=== PATIENT | male | born 1930 | race Caucasian/White ===

== ENCOUNTER → 2018-12-23 | Outpatient (CLI) | payer MEDICARE, OTHER ==
--- OUTSIDE RECORDS SUMMARY | 2019-02-10 13:43 | XMSREPORT | Summary of Care ---
:1930 Author Organization [facility] Address [address] [place] [address] Care Team Providers Name Role Phone Provider, No Attributed RESOURCE Attributed Provider Unavailable Reason for Visit Auth/Cert Status Reason Specialty Diagnoses / Procedures Referred By Contact Referred To Contact Diagnoses Nonrheumatic aortic (valve) stenosis Procedures (TAVR DESEAN) REPLACE AORTIC VALVE PERQ Encounter Details Date Type Department Care Team Description 11/30/2018 - Hospital Encounter [facility] Enmanuel Mcgrath MD [address] [place] [address] [phone] Severe aortic valve 12/01/2018 CENTER [facility]D [facility] Sanjeev Belle, DO [address] [place] [address] [phone] stenosis CARE F [address], [place] [id number] Allergies Active Allergy Reactions Severity Noted Date Comments Heparin Other (Specify in High 05/04/2012 HIT. Heparin paradoxically Comments) caused thrombosis. Warfarin Unknown/Not Verified 12/13/2012 documented as of this encounter (statuses as of 12/01/2018) Medications Medication Sig Dispensed Refills Start Date End Date Status digoxin (LANOXIN) Take 125 mcg by 0 Active 0.125 mg tablet mouth 1 time per day dilTIAZem (CARTIA XT) Take 120 mg by 0 06/16/2018 Active 120 mg extended mouth 1 time per release capsule day finasteride (PROSCAR) Take 5 mg by 0 Active 5 MG tablet mouth 1 time per day levothyroxine 200 mcg Take 200 mcg by 0 04/01/2017 Active tablet mouth 1 time per day metoprolol succinate Take 150 mg by 0 05/13/2013 Active (TOPROL XL) 100 mg SR mouth 1 time per tablet (24 hr) day rivaroxaban (XARELTO) Take 20 mg by 0 Active 20 mg tablet mouth 1 time per day tamsulosin (FLOMAX) Take 0.4 mg by 0 11/17/2012 Active 0.4 mg capsule mouth 1 time per day clopidogrel (PLAVIX) Take 75 mg by 0 09/03/2018 09/03/2019 Active 75 mg tablet mouth acetaminophen-codeine Take 1 tablet by 12 tablet 0 10/15/2018 Active #3 (TYLENOL #3) mouth every 6 300-30 mg hours as needed tabletIndications: for moderate Dental caries pain amoxicillin (AMOXIL) Take 4 capsules 20 capsule 4 12/01/2018 Active 500 mg (2,000 mg) by capsuleIndications: mouth as needed S/p TAVR for other (transcatheter aortic (Specify) valve replacement), (Single dose bioprosthetic 30-60 minutes before dental procedures) documented as of this encounter (statuses as of 12/01/2018) Active Problems Problem Noted Date Severe aortic valve stenosis 11/30/2018 Atherosclerosis of coronary artery 08/30/2018 CHF (congestive heart failure) 08/30/2018 Hypertension 08/30/2018 Severe aortic stenosis 08/30/2018 Cardiomyopathy 08/12/2012 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 Never 08/30/2018 How many drinks containing alcohol do you have on a typical Not asked day when you are drinking? How often do you have six or more drinks on one occasion? Not asked Sex Assigned at Date Recorded Not on file Job Start Date Occupation Industry Not on file Not on file Not on file Travel History Travel Start Travel End No recent travel history available. documented as of this encounter Last Filed Vital Signs Vital Sign Reading Time Taken Blood Pressure 139/61 12/01/2018 9:25 AM CDT Pulse 74 12/01/2018 9:25 AM CDT Temperature 36.8 C (98.3 F) 12/01/2018 8:00 AM CDT Respiratory Rate 15 12/01/2018 12:00 AM CDT Oxygen Saturation 92% 12/01/2018 8:30 AM CDT Inhaled Oxygen Concentration - - Weight 90.2 kg (198 lb 14.4 oz) 12/01/2018 6:38 AM CDT Height 170.8 cm (5' 7.25") 11/30/2018 5:26 AM CDT Body Mass Index 30.92 12/01/2018 6:38 AM CDT documented in this encounter Functional Status Functional Status Response Date of Assessment Is the person deaf or does he/she have serious difficulty No 10/12/2018 hearing? Do you have difficulty with walking, balance, climbing No 11/30/2018 stairs, or had a fall in the last 3 months? Does the patient have difficulty dressing or bathing? No 10/12/2018 Because of a physical, mental, or emotional condition; No 10/12/2018 does this person have difficulty doing errands alone such as visiting a doctor's office or shopping? Cognitive Status Response Date of Assessment Because of a physical, mental, or emotional condition; No 10/12/2018 does this person have serious difficulty concentrating, remembering, or making decisions? documented as of this encounter Discharge Summaries Arnulfo Caruso PA-C - 12/01/2018 2:04 PM CDT Hospital Discharge Summary Attending Physician: Sanjeev Belle DO Attending Physician Specialty: Interventional Cardiology (Internal Medicine) Admit Date: 11/30/2018 Discharge Date: 12/01/18 Primary Care Physician: No primary care provider on file. Discharge Diagnoses Active Problems: Severe aortic valve stenosis Resolved Problems: * No resolved hospital problems. * Hospital Course Mr. Colin is an 88 year old with PMH of CAD s/p recent stenting, chronic AF on Xarelto, PPM, DVT/PE, and severe aortic stenosis. He has been followed by Dr. Matthews in . He has been experiencing worsening exertional SOB relieved with rest. Outside TTE/MARGARITA showed severe aortic stenosis. 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 A(n) 26 mm Forrester JAGJIT 3 aortic bioprosthesis is present. No prosthetic aortic valve stenosis. No significant aortic transvalvular regurgitation. Trivial aortic perivalvular regurgitation. The peak valve velocity is 217 cm/s. Aortic valve mean gradient is 11 mmHg. Estimated aortic valve area (by VTI) is 2.3 cm-sq. Aortic valve acceleration time is 79 ms. The patient tolerated the procedure well. He was ambulatory the evening of the procedure. Today he has been ambulatory in the hallways without exertional symptoms. He denies chest pain or SOB. Groin sites are soft and non-tender. He will be discharged home today. Continue current medication regimen which includes Xarelto and Plavix. No ASA. Follow up with PCP in one week. Begin cardiac rehab in one week. Follow up in with Dr. Matthews in one month with labs, EKG, and echo. LabTests Pending at Discharge Follow-Up Scheduled Contact information for follow-up [place], [facility] Specialty: [facility] ([facility]) [address] [facility] [address] Next Steps: Follow up Instructions: Cardiac Rehab will contact you to set up your initial appointment. Preliminary Discharge Medications This list of medications is preliminary and tentative. Please see the After Visit Summary for the final and accurate medication list. Discharge Medication List START taking these medications START: amoxicillin 500 mg capsule Commonly known as: AMOXIL Dose: 2000 mg Take 4 capsules (2,000 mg) by mouth as needed for other (Specify) (Single dose 30-60 minutes before dental procedures) CONTINUE taking these medications which have NOT CHANGED CONTINUE: acetaminophen-codeine #3 300-30 mg tablet Commonly known as: TYLENOL #3 Dose: 1 tablet Take 1 tablet by mouth every 6 hours as needed for moderate pain CONTINUE: CARTIA XT 120 mg extended release capsule Generic drug: dilTIAZem Dose: 120 mg Take 120 mg by mouth 1 time per day CONTINUE: clopidogrel 75 mg tablet Commonly known as: PLAVIX Dose: 75 mg Take 75 mg by mouth CONTINUE: digoxin 0.125 mg tablet Commonly known as: LANOXIN Dose: 125 mcg Take 125 mcg by mouth 1 time per day CONTINUE: finasteride 5 MG tablet Commonly known as: PROSCAR Dose: 5 mg Take 5 mg by mouth 1 time per day CONTINUE: levothyroxine 200 mcg tablet Dose: 200 mcg Take 200 mcg by mouth 1 time per day CONTINUE: metoprolol succinate 100 mg SR tablet (24 hr) Commonly known as: TOPROL XL Dose: 150 mg Take 150 mg by mouth 1 time per day CONTINUE: rivaroxaban 20 mg tablet Commonly known as: XARELTO Dose: 20 mg Take 20 mg by mouth 1 time per day CONTINUE: tamsulosin 0.4 mg capsule Commonly known as: FLOMAX Dose: 0.4 mg Take 0.4 mg by mouth 1 time per day You might also be taking other medications not listed above. If you have questions about any of your other medications, talk to the person who prescribed them or your Primary Care Provider. Where to Get Your Medications These medications were sent to [facility], [id number] [place] [address], [address], [facility] [address] amoxicillin 500 mg capsule Physical Exam Constitutional: He is oriented to person, place, and time. Vital signs are normal. He appears well-developed and well-nourished. No distress. HENT: Head: Normocephalic and atraumatic. Neck: Normal range of motion. Cardiovascular: Normal rate, regular rhythm, S1 normal and S2 normal. No extrasystoles are present. Murmur heard. Systolic murmur is present with a grade of 2/6. Pulses: Radial pulses are 2+ on the right side, and 2+ on the left side. Posterior tibial pulses are 2+ on the right side, and 2+ on the left side. Pulmonary/Chest: Effort normal and breath sounds normal. No respiratory distress. Abdominal: Soft. Musculoskeletal: Normal range of motion. He exhibits edema (mild LE edema). Neurological: He is alert and oriented to person, place, and time. Skin: Skin is warm and dry. Psychiatric: He has a normal mood and affect. Nursing note and vitals reviewed. Procedures Performed and Findings All procedures during admission Procedure(s): TRANSFEMORAL TRANSCATHETER AORTIC VALVE IMPLANTATION, CATHERINE IN CCL #5, SENTINEL Consultations Obtained None Discharge Disposition Instructions for after discharge [facility] NO DRIVING No driving for one week following the procedure. OTHER ACTIVITY INSTRUCTIONS No lifting, pushing or pulling anything greater than 10 pounds for 7 days. May shower, but avoid sitting in hot tubs. Avoid hot baths or swimming for 7 days. Report increased pain, swelling or bleeding to groin puncture site. documented in this encounter Plan of Treatment Health Maintenance Due Date Last Done Comments Lipid Screening 1931 Tetanus Vaccine 1948 Zoster Vaccine (1 of 2 - 1980 RZV,Shingrix) [employer] Directive 1995 document Pneumococcal 65yr+ Low/Med Risk (1 1995 of 2 - PCV13) Influenza Vaccine (Season Ended) 2019 Diabetes Screening 11/30/2021 11/30/2018, 11/30/2018, 11/29/2018, Additional history exists documented as of this encounter Procedures Procedure Name Priority Date/Time Associated Comments Diagnosis ECHO ADULT COMPLETE Routine 12/01/2018 8:24 Results for this AM CDT procedure are in the results section. TROPONIN I Routine 12/01/2018 7:53 Results for this AM CDT procedure are in the results section. BASIC METABOLIC PANEL Routine 12/01/2018 7:53 Results for this AM CDT procedure are in the results section. EKG Routine 12/01/2018 6:14 Results for this AM CDT procedure are in the results section. HEMOGLOBIN Timed Routine 11/30/2018 9:31 Results for this PM CDT procedure are in the results section. HEMOGLOBIN Timed Routine 11/30/2018 3:11 Results for this PM CDT procedure are in the results section. EKG STAT 11/30/2018 9:23 Results for this AM CDT procedure are in the results section. HEMOGLOBIN Timed Routine 11/30/2018 9:22 Results for this AM CDT procedure are in the results section. OR PANEL 1 POCT Routine 11/30/2018 8:45 Results for this AM CDT procedure are in the results section. ACTIVATED CLOTTING Routine 11/30/2018 8:43 Results for this TIME POCT AM CDT procedure are in the results section. ACTIVATED CLOTTING Routine 11/30/2018 8:13 Results for this TIME POCT AM CDT procedure are in the results section. ECHO ADULT LIMITED Routine 11/30/2018 7:12 Results for this AM CDT procedure are in the results section. TRANSCATHETER AORTIC Routine 11/30/2018 7:10 Results for this VALVE IMPLANTATION AM CDT procedure are in DUCK OPERATOR the results section. ACTIVATED CLOTTING Routine 11/30/2018 7:08 Results for this TIME POCT AM CDT procedure are in the results section. OR PANEL 1 POCT Routine 11/30/2018 7:07 Results for this AM CDT procedure are in the results section. ABO AND RH STAT 11/30/2018 6:14 Results for this AM CDT procedure are in the results section. documented in this encounter Results ECHO ADULT COMPLETE (12/01/2018 8:24 AM CDT) Narrative Performed At [facility] Patient: SHRUTHI COLIN MR#: [id number] Exam Date: 12/01/2018 Transthoracic Echocardiogram [address] [place], [id number] : 140/101 mmHgHR:100 bpm : 1930Exam Location: Bedside Height:67.00 "( 170.2 cm) Age: 88 year(s)Patient Room: 538 01Weight:200 lbs.( 90.72 kg) Gender:MalePatient Status: Inpatient BSA: 2.02 m2 [employer] Worker: SELIN REYNA RDCS Reading Physician: SANJEEV BELLE DO Ordering Physician:SANJEEV BELLE DO Procedure Indication(s):S/P DESEAN Examination:TTE Complete 2D(m-mode) , Complete Spectral Doppler, Color Doppler Clinical History Date of Most Recent Valve Procedure: 11/30/2018 Prior Valve Surgery: Transcatheter Aortic Valve Replacement Comparison Study Comparison Date: 11/30/2018 Comparison Study: Transthoracic Echocardiogram Aortic mean pressure gradient has increased from 5mmHg, LV overall function has increased from 40% Findings Left Ventricle: Normal left ventricular size. There is pnvg-gx-zjkydiea concentric hypertrophy of the left ventricle. Increased left ventricular wall thickness. Normal left ventricular systolic function. The ejection fraction is visually estimated to be 55 %. There are no left ventricular regional wall motion abnormalities. Unable to assess left ventricular diastolic function due to abnormal rhythm. Left Atrium: Dilated left atrium. Aortic Valve: A(n) 26 mm Forrester JAGJIT 3 aortic bioprosthesis is present. No prosthetic aortic valve stenosis. No significant aortic transvalvular regurgitation. Trivial aortic perivalvular regurgitation. The peak valve velocity is 217 cm/s. Aortic valve mean gradient is 11 mmHg. Estimated aortic valve area (by VTI) is 2.3 cm-sq. Aortic valve acceleration time is 79 ms. Aorta: The sinus of valsalva is normal in size measuring 35.0 mm. The ascending aorta is normal in size measuring 40.0 mm. Mitral Valve: Mild mitral leaflet thickening. There is mild mitral annular calcification. Trivial mitral regurgitation. No mitral stenosis. IAS: No gross evidence of shunt flow seen; however the possibility of a PFO cannot be completely ruled out. Right Ventricle: Normal right ventricular size. Normal right ventricular systolic function. Normal right ventricular wall thickness. A pacing wire is present in the right ventricle. There is no associated thrombus/vegetation on the wire. Pulmonary artery systolic pressure is measured at 36 mmHg. Pulmonary Artery: No significant pulmonary artery hypertension. Pulmonary Vein: The pulmonary venous flow demonstrates a blunted S-wave. Right Atrium: Dilated right atrium by visual assessment. A pacing wire is present in the right atrium. There is no associated thrombus/vegetation on the wire. Tricuspid Valve: Normal tricuspid valve structure. Mild tricuspid regurgitation. No significant tricuspid stenosis. Pulmonic Valve: Normal pulmonary valve structure. Trivial pulmonary regurgitation. No pulmonary stenosis. IVC: Normal IVC size with normal respirophasic changes. Pericardium: No significant pericardial effusion. There is pericardial fat. No pleural effusion. Measurements Left Ventricle Aortic Valve LabelValueNormal Value LabelValue Normal Value LVDd, 2D 49.4 mm LVOT Vmax 158 cm/s LVDs, 2D 35.4 mm LVOTd 21 mm IVSd, 2D 13.5 mm LVOT VTI21.1 cm LVPWd, 2D13.3 mm LVOT PGmax10 mmHg FS, 2D 28.34 % AV Brjoo843 cm/s Cardiac Output 7.3 L/min AV VTI31.8 cm Cardiac Index3.61 AV PGmax19 mmHg L/min/m-sqAVA (Vmax) 2.5 cm-sq LVEDVI, 2D 56.9 ml/m2 AV Vmax, [id number] cm/s LVESVI, 2D 25.7 ml/m2 Obstructive Index 0.73 Stroke Index 36.14 (Vmax) ml/m-sq Obstruction Index 0.66 Left Atrium (VTI) LabelValueNormal Value AV PGmean 11 mmHg LADs Long. 64 mm AV Vmax 217 cm/s LA Volume Index52 ml/m-sq JOHN(VTI)2.3 cm-sq LADs, MM 51 mm Mitral Valve LA/AO Ratio, MM1.82 Label Value Normal Value Aorta MV E Vmax 107 cm/s LabelValueNormal Value MV E/E' lateral 19.4 Ao Asc 40 mm MV E/E' .8 Ao Sinus, MM 28 mm MV Dec Time 180 ms Ao Sinus, 2D 35 mm MV E' septal0.1 cm/s Great Vessels MV E' lateral 0.1 cm/s LabelValueNormal Value Tricuspid Valve PVein S35 cm/s LabelValue Normal Value PVein D88 cm/s TR Vmax 286 cm/s S/D Ratio0.4 TR Pmax 33 mmHg Heart Rate RA Pressure 3 mmHg LabelValueNormal Value RVSP36 mmHg Heart Rate 100 bpm Pulmonic Valve LabelValueNormal Value PV Vmax 79 cm/s PV PGmax2 mmHg Procedure Note Interface, Inc Results No Pull Forward - 12/01/2018 10:52 AM CDT Patient: SHRUTHI COLIN MR#: [id number] Exam Date: 12/01/[address] [place] [address] BP: 140/101 mmHg HR: 100 bpm : 1930 Exam Location: Bedside Height: 67.00 "(170.2 cm) Age: 88 year(s) Patient Room: 538 Weight: 200 lbs.(90.72 kg) Gender: Male Patient Status: Inpatient BSA: 2.02 m2 [employer] Worker: SELIN REYNA RDCS Reading Physician: SANJEEV BELLE DO Ordering Physician: SANJEEV BELLE DO Procedure Indication(s): S/P DESEAN Examination: TTE Complete 2D(m-mode), Complete Spectral Doppler, Color Doppler Clinical History Date of Most Recent Valve Procedure: 11/30/2018 Prior Valve Surgery: Transcatheter Aortic Valve Replacement Comparison Study Comparison Date: 11/30/2018 Comparison Study: Transthoracic Echocardiogram Aortic mean pressure gradient has increased from 5mmHg, LV overall function has increased from 40% Findings Left Ventricle: Normal left ventricular size. There is nuux-oc-vzgcrnzu concentric hypertrophy of the left ventricle. Increased left ventricular wall thickness. Normal left ventricular systolic function. The ejection fraction is visually estimated to be 55 %. There are no left ventricular regional wall motion abnormalities. Unable to assess left ventricular diastolic function due to abnormal rhythm. Left Atrium: Dilated left atrium. Aortic Valve: A(n) 26 mm Forrester JAGJIT 3 aortic bioprosthesis is present. No prosthetic aortic valve stenosis. No significant aortic transvalvular regurgitation. Trivial aortic perivalvular regurgitation. The peak valve velocity is 217 cm/s. Aortic valve mean gradient is 11 mmHg. Estimated aortic valve area (by VTI) is 2.3 cm-sq. Aortic valve acceleration time is 79 ms. Aorta: The sinus of valsalva is normal in size measuring 35.0 mm. The ascending aorta is normal in size measuring 40.0 mm. Mitral Valve: Mild mitral leaflet thickening. There is mild mitral annular calcification. Trivial mitral regurgitation. No mitral stenosis. IAS: No gross evidence of shunt flow seen; however the possibility of a PFO cannot be completely ruled out. Right Ventricle: Normal right ventricular size. Normal right ventricular systolic function. Normal right ventricular wall thickness. A pacing wire is present in the right ventricle. There is no associated thrombus/vegetation on the wire. Pulmonary artery systolic pressure is measured at 36 mmHg. Pulmonary Artery: No significant pulmonary artery hypertension. Pulmonary Vein: The pulmonary venous flow demonstrates a blunted S-wave. Right Atrium: Dilated right atrium by visual assessment. A pacing wire is present in the right atrium. There is no associated thrombus/vegetation on the wire. Tricuspid Valve: Normal tricuspid valve structure. Mild tricuspid regurgitation. No significant tricuspid stenosis. Pulmonic Valve: Normal pulmonary valve structure. Trivial pulmonary regurgitation. No pulmonary stenosis. IVC: Normal IVC size with normal respirophasic changes. Pericardium: No significant pericardial effusion. There is pericardial fat. No pleural effusion. Measurements Left Ventricle Aortic Valve Label Value Normal Value Label Value Normal Value LVDd, 2D 49.4 mm LVOT Vmax 158 cm/s LVDs, 2D 35.4 mm LVOTd 21 mm IVSd, 2D 13.5 mm LVOT VTI 21.1 cm LVPWd, 2D 13.3 mm LVOT PGmax 10 mmHg FS, 2D 28.34 % AV Vmean 152 cm/s Cardiac Output 7.3 L/min AV VTI 31.8 cm Cardiac Index 3.61 AV PGmax 19 mmHg L/min/m-sq JOHN (Vmax) 2.5 cm-sq LVEDVI, 2D 56.9 ml/m2 AV Vmax, Caliper 217 cm/s LVESVI, 2D 25.7 ml/m2 Obstructive Index 0.73 Stroke Index 36.14 (Vmax) ml/m-sq Obstruction Index 0.66 Left Atrium (VTI) Label Value Normal Value AV PGmean 11 mmHg LADs Long. 64 mm AV Vmax 217 cm/s LA Volume Index 52 ml/m-sq JOHN (VTI) 2.3 cm-sq LADs, MM 51 mm Mitral Valve LA/AO Ratio, MM 1.82 Label Value Normal Value Aorta MV E Vmax 107 cm/s Label Value Normal Value MV E/E' lateral 19.4 Ao Asc 40 mm MV E/E' septal 16.8 Ao Sinus, MM 28 mm MV Dec Time 180 ms Ao Sinus, 2D 35 mm MV E' septal 0.1 cm/s Great Vessels MV E' lateral 0.1 cm/s Label Value Normal Value Tricuspid Valve PVein S 35 cm/s Label Value Normal Value PVein D 88 cm/s TR Vmax 286 cm/s S/D Ratio 0.4 TR Pmax 33 mmHg Heart Rate RA Pressure 3 mmHg Label Value Normal Value RVSP 36 mmHg Heart Rate 100 bpm Pulmonic Valve Label Value Normal Value PV Vmax 79 cm/s PV PGmax 2 mmHg Performing Organization Address City/[facility]/[employer] Phone Number [facility] F, [place] TROPONIN I (12/01/2018 7:53 AM CDT) Troponin I 0.603 (H) 0.000 - 0.028 ng/mL [place] [address] [facility] Specimen Blood - Blood Performing Organization Address City/[facility]/[employer] Phone Number [facility] [address] [place] [address] BASIC METABOLIC PANEL (12/01/2018 7:53 AM CDT) Glucose 114 (H) 70 - 100 mg/dL [address] BUN 11 6 - 22 mg/dL [place] [address] [facility] Creatinine 0.94 0.80 - 1.30 mg/dL [address] BUN/Creatinine Ratio 11.7 10.0 - 25.[address] Sodium 136 135 - 145 meq/L [address] Potassium 4.0 3.5 - 5.3 meq/L [address] Chloride 105 99 - 110 meq/L [place] [address] [facility] CO2 23 20 - 29 meq/L [address] Anion Gap with K 12 6 - 20 meq/L [address] Calcium 9.1 8.5 - 10.5 mg/dL [address] Age [address] eGFR Non- 76 >=60 mL/min/1.73m2 [place] [address] [facility] eGFR >90 >=60 mL/min/1.73m2 [place] [address] [facility] Specimen Blood - Blood Performing Organization Address [facility] Phone Number [place] [address] [facility] [address] [place] [phone] EKG (12/01/2018 6:14 AM CDT)Only the most recent of2 resultswithin the time period is included. EKG [employer] Atrial fibrillation with occasional ventricular-paced complexes Left axis deviation ST & T wave abnormality, consider lateral ischemia Abnormal ECG When compared with ECG of 30-NOV-2018 09:23, Vent. rate has increased BY30 BPM Ventricular Rate: 91 BPM Atrial Rate: 96 BPM QRS Duration: 96 ms Q-T Interval: 354 ms QTc Calculation(Bazett): 435 ms Calculated R [place]: -32 degrees Calculated T [place]: -163 degrees Narrative Performed At Performing Organization Address [facility] Phone Number [employer] HEMOGLOBIN (11/30/2018 9:31 PM CDT)Only the most recent of3 resultswithin the time period is included. Hemoglobin 11.3 (L) 13.5 - 17.5 g/dL [address] Specimen Blood - Blood Performing Organization Address City/[facility]/Zipcode Phone Number [place] [address] [facility] [address] [place] [phone] OR PANEL 1 POCT (11/30/2018 8:45 AM CDT)Only the most recent of2 resultswithin the time period is included. pH Arterial POCT 7.36 7.35 - 7.45 [facility] POINT OF CARE TESTING pCO2 Arterial POCT 39 35 - 45 mmHg [facility] POINT OF CARE TESTING pO2 Arterial POCT 92 80 - 100 mmHg [facility] CARE TESTING HCO3 (Bicarb) Arterial POCT 22 20 - 29 mmol/L [facility] TESTING Base Excess Arterial POCT -3 (L) -2 - 2 meq/L [facility] TESTING O2 Sat % Arterial POCT 97 95 - 98 % [facility] TEST[facility] Ionized Calcium 1.18 1.12 - 1.32 mmol/L [facility] TESTING Sodium 143 135 - 145 meq/L [facility] TESTING Potassium 4.0 3.5 - 5.3 meq/L [facility] TESTING Glucose 126 (H) 70 - 100 mg/dL [facility] TESTING Hematocrit 31.0 (L) 40.0 - 50.0 % [facility] TESTING Hemoglobin 10.6 (L) 13.5 - 17.5 g/dL [facility] TESTING Specimen Source Arterial [facility] TESTING Specimen Blood - Blood Narrative Performed At Whole blood sample. Unable to evaluate for [facility] CARE hemolysis. TESTING Performing Organization Address City/[facility]/Zipcode Phone Number [facility] [address] [place] [address] CARE TESTING ACTIVATED CLOTTING TIME POCT (11/30/2018 8:43 AM CDT)Only the most recent of3 resultswithin the time period is included. Activated Clotting Time 474 (H) 100 - 140 Secs [facility] CARE TESTING Specimen Blood - Blood Performing Organization Address City/State/Zipcode Phone Number [facility] [address] [place] [address] CARE TESTING ECHO ADULT LIMITED (11/30/2018 7:12 AM CDT) Narrative Performed At [facility] Patient: SHRUTHI COLIN MR#:[id number] Exam Date: 11/30/2018 [facility] [address] [place]chocardiogram [id number] : 105/75 mmHg HR:67 bpm : 1930Exam Location: Cath LabHeight:67.00 "(170.2 cm) Age: 88 year(s)[facility] lbs.( 91.63 kg) Gender:MalePatient Status: Inpatient BSA: 2.03 m2 [employer] Worker:AGATHA WALTON (AE,PE) Reading Physician:SANJEEV BELLE DO Ordering Physician: RYANN BOLANOS [employer] Procedure Indication(s): Aortic stenosis Examination: TTE Limited 2D, Limited Spectral Doppler, Color Doppler Comparison Study Comparison Study: No previous echo was available for comparison Findings Left Ventricle: Normal left ventricular size. Mildly increased left ventricular wall thickness. Dsji-rw-nwqehdivcz reducedleft ventricular systolic function. The ejection fraction is visually estimated to be 40 %. There is global hypokinesis of the left ventricle. Aortic Valve: Pre Procedure: The aortic valve is tricuspid. Marked aortic cuspal thickening. Moderate aortic cuspal calcification. Mild aortic regurgitation. Severe aortic stenosis. Aortic valve mean gradient is 54 mmHg. Post Procedure: A normal 26 mm Forrester JAGJIT 3 aortic bioprosthesis is present. No prosthetic aortic valve stenosis. No significant aortic transvalvular regurgitation. No significant aortic perivalvular regurgitation. The peak valve velocity is 152 cm/s. Aortic valve mean gradient is 5 mmHg. Estimated aortic valve VTI is 32.3 cm. Estimated aortic valve area (by VTI) is 3.0 cm-sq. Estimated aortic valve area (by Vmax) is 3.5 cm-sq. The stroke volume is 96 ml. The cardiac output is 6.78 l/min. Mitral Valve: Mild mitral leaflet thickening. There is mild mitral annular calcification. Mild mitral regurgitation. No mitral stenosis. Pericardium: No significant pericardial effusion. Measurements Left Ventricle Aortic Valve Label ValueNormal Value Label Value Normal Value Stroke Index 41.87 LVOT Vmax 88 cm/s ml/m-sq AV Vmax 472 cm/s Cardiac Output 5.7 L/min LVOTd 23 mm Cardiac Index2.81 LVOT VTI20.5 cm L/min/m-sqLVOT PGmax 3 mmHg LVDd, MM 50.8 mm AV Iceis951 cm/s LVDs, MM 40.3 mm AV BAB661 cm LVPWd, MM 13.1 mm AV PGmax 75 mmHg IVSd, MM 10.9 mm JOHN (Vmax)0.8 cm-sq post Cardiac Output6.78 l/min AR Vmax 407 cm/s FS, MM 20.67 % AR Slope1.4 m/s-sq Heart Rate AR ANR221 ms Label ValueNormal Value AV Vmax, Fyjenwl095 cm/s Heart Rate 67 bpm JOHN(VTI)0.8 cm-sq Obstruction Index 0.19 (VTI) Obstructive Index 0.19 (Vmax) Post AV VTI 32.3 cm Post JOHN Vmax 3.5 cm-sq AV PGmean 54 mmHg Mitral Valve Label ValueNormal Value MV VTI29.8 cm MVA (VTI) 2.8 cm-sq MV PGmax5 mmHg MV PGmean 3 mmHg Other Measurements Label ValueNormal Value Post AV Zybj798 cm/s Post AV PGmean5 mmHg Post JOHN (VTI)3 cm-sq Post SV 95.56 ml Post HR 71 bpm Procedure Note Interface, Inc Results No Pull Forward - 12/01/2018 9:17 AM CDT Patient: SHRUTHI COLIN MR#: [id number] Exam Date: 11/30/2018 [facility] [address] Echocardiogram [place] [id number] BP: 105/75 mmHg HR: 67 bpm : 1930 Exam Location: [employer] Height: 67.00 "(170.2 cm) Age: 88 year(s) Patient Room: 538 Weight: 202 lbs.(91.63 kg) Gender: Male Patient Status: Inpatient BSA: 2.03 m2 [employer] Worker: AGATHA WALTON (AE,PE) Reading Physician: SANJEEV BELLE DO Ordering Physician: LAUREN SIMEON Procedure Indication(s): Aortic stenosis Examination: TTE Limited 2D, Limited Spectral Doppler, Color Doppler Comparison Study Comparison Study: No previous echo was available for comparison Findings Left Ventricle: Normal left ventricular size. Mildly increased left ventricular wall thickness. Opex-tq-iczxxdwryn reduced left ventricular systolic function. The ejection fraction is visually estimated to be 40 %. There is global hypokinesis of the left ventricle. Aortic Valve: Pre Procedure: The aortic valve is tricuspid. Marked aortic cuspal thickening. Moderate aortic cuspal calcification. Mild aortic regurgitation. Severe aortic stenosis. Aortic valve mean gradient is 54 mmHg. Post Procedure: A normal 26 mm Forrester JAGJIT 3 aortic bioprosthesis is present. No prosthetic aortic valve stenosis. No significant aortic transvalvular regurgitation. No significant aortic perivalvular regurgitation. The peak valve velocity is 152 cm/s. Aortic valve mean gradient is 5 mmHg. Estimated aortic valve VTI is 32.3 cm. Estimated aortic valve area (by VTI) is 3.0 cm-sq. Estimated aortic valve area (by Vmax) is 3.5 cm-sq. The stroke volume is 96 ml. The cardiac output is 6.78 l/min. Mitral Valve: Mild mitral leaflet thickening. There is mild mitral annular calcification. Mild mitral regurgitation. No mitral stenosis. Pericardium: No significant pericardial effusion. Measurements Left Ventricle Aortic Valve Label Value Normal Value Label Value Normal Value Stroke Index 41.87 LVOT Vmax 88 cm/s ml/m-sq AV Vmax 472 cm/s Cardiac Output 5.7 L/min LVOTd 23 mm Cardiac Index 2.81 LVOT VTI 20.5 cm L/min/m-sq LVOT PGmax 3 mmHg LVDd, MM 50.8 mm AV Vmean 324 cm/s LVDs, MM 40.3 mm AV VTI 106 cm LVPWd, MM 13.1 mm AV PGmax 75 mmHg IVSd, MM 10.9 mm JOHN (Vmax) 0.8 cm-sq post Cardiac Output 6.78 l/min AR Vmax 407 cm/s FS, MM 20.67 % AR Dougherty 1.4 m/s-sq Heart Rate AR PHT 837 ms Label Value Normal Value AV Vmax, Caliper 432 cm/s Heart Rate 67 bpm JOHN (VTI) 0.8 cm-sq Obstruction Index 0.19 (VTI) Obstructive Index 0.19 (Vmax) Post AV VTI 32.3 cm Post JOHN Vmax 3.5 cm-sq AV PGmean 54 mmHg Mitral Valve Label Value Normal Value MV VTI 29.8 cm MVA (VTI) 2.8 cm-sq MV PGmax 5 mmHg MV PGmean 3 mmHg Other Measurements Label Value Normal Value Post AV Vmax 152 cm/s Post AV PGmean 5 mmHg Post JOHN (VTI) 3 cm-sq Post SV 95.56 ml Post HR 71 bpm Performing Organization Address City/State/Zipcode Phone Number [facility] F, [place] DESEAN (Transcatheter aortic valve replacement) DUCK OPERATOR (11/30/2018 7:10 AM CDT) Narrative Performed At [facility] Patient:SHRUTHI COLIN Exam Date: 11/30/[address] SExam Time: 07:10 AM [place] [id number] Time: 27.2 min. Structural Heart Report Name SHRUTHI MERRITT # MR#[id number] Admission Number [id number] Study Date 11/30/2018Study Time Date Of Birth1930Age 88 year(s) Height () Weight() BSA Gender male Report Results: Please see the electronic medical record for documented report results. Procedure Note Interface, Inc Results No Pull Forward - 12/01/2018 3:06 PM CDT Patient: SHRUTHI COLIN Exam Date: 11/30/[address] Exam Time: 07:10 AM [place] [id number] Fluoro Time: 27.2 min. Structural Heart Report Name SHRUTHI IRCE# MR# [id number] Admission Number [id number] Study Date 11/30/2018 Study Time Date Of 1930 Age 88 year (s) Height ( ) Weight ( ) BSA Gender male Report Results: Please see the electronic medical record for documented report results. Performing Organization Address City/[facility]/Zipcode Phone Number [facility] F, [place] ABO & RH G (11/30/2018 6:14 AM CDT) ABO Type A [address] BLOOD BANK Rh Type Positive [address] BLOOD BANK Specimen Blood - Blood Performing Organization Address [facility] Phone Number [address] BLOOD BANK [address] [place] [address] documented in this encounter Visit Diagnoses Diagnosis Severe aortic stenosis - Primary Aortic valve disorders S/p TAVR (transcatheter aortic valve replacement), bioprosthetic Severe aortic valve stenosis Aortic valve disorders documented in this encounter Administered Medications Medication Order MAR Action Action Date Dose Rate Site acetaminophen (TYLENOL) tablet 650 mg 650 mg, Oral, Every four hours prn, Starting Thu11/30/18 at 1055, Until Discontinued, mild pain, fever > (indicate temp), fever greater than 101 F, Post - Op, Oral or NG, aspirin enteric coated tablet 81 mg 81 mg, Oral, Daily, First dose on Thu12/01/18 at 0900, Until Discontinued, Post - Op, Tablet should be swallowed whole and not be divided, crushed or chewed., bisacodyl (DULCOLAX) suppository 10 mg 10 mg, Rectal, One time a day prn, Starting Thu11/30/18 at 1055, Until Discontinued, constipation, Post - Op, Use second for constipation. If patient cannot take oral medications, use first for constipation., clevidipine (CLEVIPREX) 0.5 mg/mL IV emulsion 0-32 mg/hr (0-64 mL/hr), IV, at 0-64 mL/hr, Titrate, Starting Thu11/30/18 at 1100, Until Discontinued, 50 mL, Post - Op, For nitroglycerin/clevidipine infusions to keep SBP less than 160: Use the antihypertensive infusion used in the OR FIRST (and the other second, if ordered). DO NOT start unless parameters are met. oInitiate infusion at 1 mg/hr, double infusion every 90 seconds as needed until systolic blood pressure less than 160 mmHg. oAs hemodynamic goal approaches, lengthen the time between dose adjustments to every 5 minutes. oWhen weaning or discontinuing, decrease infusion by 50% every 5 minutes to avoid severe hypertension. oOnce spiked, must start infusion within 4 hours; if this criteria is not met, discard any unused portion including that which is currently being infused. oMONITOR blood pressure and heart rate continually during infusion. oDO NOT run with lipid based products such as propofol and intralipid. oInfusion should be changed every 12 hours; Discard unused portion. o Call physician if SBP greater than 160 mmHg or less than 90 mmHg, clopidogrel (PLAVIX) tablet 75 mg Given 12/01/2018 9:25 AM CDT 75 mg 75 mg, Oral, Daily, First dose on Thu12/01/18 at 0900, Until Discontinued, Post - Op digoxin (LANOXIN) tablet 0.125 mg Given 11/30/2018 4:51 PM CDT 0.125 mg 0.125 mg (125 mcg), Oral, Daily (Digoxin), First dose on Thu11/30/18 at 1600, Until Discontinued dilTIAZem (CARDIZEM CD) extended release Given 11/30/2018 9:06 PM CDT 120 mg capsule 120 mg 120 mg, Oral, Bedtime, First dose on Thu11/30/18 at 2100, Until Discontinued, Swallow capsule whole. Do not crush, chew or open., , , finasteride (PROSCAR) tablet 5 mg Given 12/01/2018 9:25 AM CDT 5 mg 5 mg, Oral, DAILY, First dose on Thu12/01/18 at 0900, Until Discontinued, This medication is a low risk cytotoxic drug. Wear 2 pairs of chemo gloves for administration. If unable to administer dose intact - contact pharmacy for other administration options. Dispose of empty packages in the yellow cytotoxic waste. Dispose of unused or partial packages in the black waste containers., hydrALAZINE (APRESOLINE) injection solution Given 11/30/2018 4:50 PM CDT 5 mg 5-40 mg 5-40 mg, IV, Every six hours prn, Starting Thu11/30/18 at 1055, Until Discontinued, specified parameter, SBP greater than 160 mmHg, 2 mL, Post - Op, SBP greater than 160 mmHg Use Fourth for hypertension Starting dose of 5 mg. Dose may be doubled from previous dose (up to ordered maximum) for a single dose. Max dose 150 mg for 8 hours or 300 mg in 24 hours. Monitor blood pressure every 15 minutes x4 and observe for hypotension and bradycardia after each dose, levothyroxine tablet 200 mcg Given 12/01/2018 6:58 AM CDT 200 mcg 200 mcg, Oral, One time a day before breakfast, First dose on Thu12/01/18 at 0700, Until Discontinued lisinopril (PRINIVIL, ZESTRIL) tablet 2.5 mg Given 12/01/2018 9:27 AM CDT 2.5 mg 2.5 mg, Oral, Daily, First dose on Thu12/01/18 at 0840, Until Discontinued metoprolol succinate (TOPROL XL) SR tablet Given 12/01/2018 9:27 AM CDT 150 mg (24 hr) 150 mg 150 mg, Oral, DAILY, First dose on Thu11/30/18 at 1200, Until Discontinued, Tablet may be broken in half, but should not be crushed or chewed., , , Given 11/30/2018 12:55 PM CDT 150 mg nalOXone (NARCAN) injection solution (vial) 0.2 mg 0.2 mg, IV, Every three minutes prn, 3 doses, Starting Thu11/30/18 at 1055, Until Discontinued, other (Specify), respiratory rate of 8/minute or less. Notify physician. May repeat every 3 minutes up to 3 doses as needed until respiratory rate increases to 10/minute., 1 mL, Post - Op ondansetron (ZOFRAN) injection solution 4 mg 4 mg, IV, Every four hours prn, Starting Thu11/30/18 at 1055, Until Discontinued, nausea, vomiting, 2 mL, Post - Op, If preference is to further dilute for IV administration: First draw up patient-specific dose, then dilute to 10 mL with 0.9% sodium chloride., PHENYLephrine 200 mcg/mL in sodium chloride 0.9% 250 mL 0-1 mcg/kg/min 90.8 kg (0-27.24 mL/hr, rounded to 0-27.2 mL/hr), IV, at 0-27.2 mL/hr, Titrate , Starting Thu11/30/18 at 1100, Until Discontinued, 250 mL, Post - Op, Initiate the infusion at 0.1-0.5 mcg/kg/min. Increase or decrease the infusion by 0.1-0.5 mcg/kg/min every 5 minutes to keep SBP greater than or equal to 95 mmHg. When discontinuing or weaning, decrease dose gradually by 0.1-0.5 mcg/kg/minute every 5 minutes as tolerated to prevent severe hypotension. Document titrations in One Chart (MAR or I&O Flowsheet medication group)., rivaroxaban (XARELTO) tablet 20 mg Given 11/30/2018 6:04 PM CDT 20 mg 20 mg, Oral, One time a day with evening meal, First dose on Thu11/30/18 at 1730, Until Discontinued, If medication given via a feeding tube, feeding tube MUST be gastric. If feeding tube is placed in the small intestine, notify provider or pharmacy. , senna-docusate sodium (SENOKOT-S;PERICOLACE) tablet 1 tablet 1 tablet, Oral, Two times a day prn, Starting Thu11/30/18 at 1055, Until Discontinued, constipation, Post - Op, Use first for constipation unless patient cannot take oral medications, tamsulosin (FLOMAX) capsule 0.4 mg Given 11/30/2018 9:06 PM CDT 0.4 mg 0.4 mg, Oral, Bedtime, First dose on Thu11/30/18 at 2100, Until Discontinued, Swallow cap whole. Do not crush, chew or open., Medication Order [facility] Action Action Date Dose Rate Site iohexol (OMNIPAQUE) 350 mg/mL Given 11/30/2018 9:19 AM CDT 60 mL solution 60 mL 60 mL, Intra-arterial, One time, 1 dose, Thu11/30/18 at 0920, 100 mL lidocaine PF (XYLOCAINE-MPF) 1 % preservative Given 11/30/2018 8:18 AM CDT 1 mL free injection solution 0-40 mL 0-40 mL, Subcutaneous, Administer in Cardiac [employer], 1 dose, Thu11/30/18 at 0740, 60 mL, Given by provider in CCL. Do not give on the floor., Given 11/30/2018 7:45 AM CDT 8 mL Given 11/30/2018 7:39 AM CDT 5 mL sodium chloride 0.9% IV Already Infusing 11/30/2018 9:15 AM CDT 75 mL/hr solution IV, at 75 mL/hr, Continuous, Starting 11/30/18 at 0910, Until 11/30/18 at 1039, 1,000 mL, PACU, TKO current fluids if patient is going to Day Unit / ARU and tolerating PO fluids without nausea., sodium chloride 0.9% IV solution New Bag 11/30/2018 10:19 AM CDT 150 mL/hr IV, at 150 mL/hr, Continuous, Starting e 11/30/18 at 1005, Until Thu11/30/18 at 1404, 1,000 mL, Post - Op Already Infusing 11/30/2018 9:23 AM CDT 150 mL/hr verapamil-hEParin in normal saline (radial Given 11/30/2018 8:20 AM CDT cocktail) Intra-arterial, Administer in Cardiac Agricultural Consultant, 1 dose, e 11/30/18 at 0825, 10 mL, Under the direction of the provider in CCL. Do not give on the floor., documented in this encounter
== END ==
LOC: DL.US 10:43
PROVIDERS: ATTEND Internal Medicine Cardiovascular Disease
DX: Z48.812 Encounter for surgical aftercare following surgery on the circulatory system (principal); I08.3 Combined rheumatic disorders of mitral, aortic and tricuspid valves; I77.810 Thoracic aortic ectasia; Z95.2 Presence of prosthetic heart valve
CPT/HCPCS: 93306

== ENCOUNTER 2019-08-17 14:58 | Emergency (ER) | payer MEDICARE, OTHER ==
--- NOTE | 2019-08-17 15:29 | EDM.PDOC ---
ED HPI GENERAL MEDICAL PROBLEM - General Stated Complaint: CAME FROM CLINIC Time Seen by Provider: 08/17/19 15:25 Source of Information: Reports: Patient, Provider History Limitations: Reports: No Limitations - History of Present Illness INITIAL COMMENTS - FREE TEXT/NARRATIVE: This 89 yo male patient was sent to the ED from the [facility] in [place]. The patient was at the clinic today for a follow-up from a hospital stay. The patient was released from [facility] last week after being treated for intermittent episodes of a fib with RVR. The patient's reports the patient has had a cough for the past 3 weeks, but since he got back from [facility] he has been less active and more tired. The patient's provider reports the patient does not look good at this time and came into the clinic in a wheelchair. The patient reported that he has been feeling dizzy and lightheaded today. The patient's blood pressure was 80/60 during the clinic visit. The patient's provider reports concern about the patient's elevated PSA over the past several years with no follow-up. The patient reports he has had a cough for over 1 month and has no energy at this time. The patient reports he has troubles if he just walks out to his shop. The patient reports a normal day at this time is sitting in the chair watching television. Duration: Week(s):, Constant Location: Reports: Chest Quality: Reports: Other Severity: Moderate Improves with: Reports: None Worsens with: Reports: None Context: Reports: Other Associated Symptoms: Reports: Cough, Shortness of Breath, Weakness - Related Data Allergies Allergy/AdvReac Type Severity Reaction Status Date / Time heparin Allergy Other Verified 05/26/19 12:17 warfarin [From Coumadin] Allergy Other Verified 05/26/19 12:18 ED ROS GENERAL - Review of Systems Review Of Systems: Comprehensive ROS is negative, except as noted in HPI. ED EXAM, GENERAL - Physical Exam Exam: See Below Exam Limited By: No Limitations General Appearance: Alert, WD/WN, Mild Distress Eye Exam: Bilateral Eye: EOMI, Normal Inspection, PERRL Ears: Normal External Exam, Normal Canal, Hearing Grossly Normal, Normal TMs Nose: Normal Inspection, Normal Mucosa, No Blood Throat/Mouth: Normal Inspection, Normal Lips, Normal Teeth, Normal Gums, Normal Oropharynx, Normal Voice, No Airway Compromise Head: Atraumatic, Normocephalic Neck: Normal Inspection, Supple, Non-Tender, Full Range of Motion Respiratory/Chest: Decreased Breath Sounds Cardiovascular: Normal Peripheral Pulses, Regular Rate, Rhythm, Systolic Murmur , Extra Beats GI/Abdominal: Normal Bowel Sounds, Soft, Non-Tender, No Organomegaly, No Distention, No Abnormal Bruit, No Mass (Male) Exam: Deferred Rectal (Males) Exam: Deferred Back Exam: Normal Inspection, Full Range of Motion, NT Extremities: Normal Inspection, Normal Range of Motion, Non-Tender, Normal Capillary Refill Neurological: Alert, Oriented, CN II-XII Intact, Normal Cognition, Normal Gait, Normal Reflexes, No Motor/Sensory Deficits Psychiatric: Normal Affect, Normal Mood Skin Exam: Warm, Dry, Intact, Normal Color, No Rash Lymphatic: No Adenopathy Course - Vital Signs Last Recorded V/S: Last Vital Signs Temp 36.1 C 08/17/19 15:16 Pulse 81 08/17/19 15:16 Resp 28 H 08/17/19 15:16 BP 127/69 08/17/19 15:16 Pulse Ox 98 08/17/19 15:16 - Orders/Labs/Meds Orders: Active Orders 24 hr Category Date Time Status EKG Documentation Completion [RC] URGENT Care 08/17/19 15:00 Ordered CULTURE BLOOD [BC] Stat Lab 08/17/19 15:01 Ordered cefTRIAXone [Rocephin] 1 gm Med 08/17/19 16:41 Ordered Sodium Chloride 0.9% [Normal Saline] 50 ml IV ONETIME Medication Orders Ceftriaxone Sodium 1 gm/ (Sodium Chloride) 50 mls @ 50 mls/hr IV ONETIME ONE Stop: 08/17/19 17:40 Labs: Laboratory Tests 08/17/19 08/17/19 08/17/19 Range/Units : 15:20 15:20 WBC 11.8 H (5.0-10.0) 10^3/uL RBC 4.79 (4.6-6.2) 10^6/uL Hgb 12.2 L D (14.0-18.0) g/dL Hct 38.1 L (40.0-54.0) % MCV 79.5 L D (80-100) fL MCH 25.5 L (27.0-34.0) pg MCHC 32.0 L (33.0-35.0) g/dL Plt Count 206 (150-450) 10^3/uL Neut % (Auto) 77.7 H (42.2-75.2) % Lymph % (Auto) 8.8 L (20.5-50.1) % [place] % (Auto) 12.7 H (2-8) % Eos % (Auto) 0.5 L (1.0-3.0) % Baso % (Auto) 0.3 (0.0-1.0) % PT 13.4 H (9.0-12.0) SEC INR 1.3 H (0.9-1.2) Sodium 132 L (135-145) mmol/L Potassium 4.0 (3.6-5.0) mmol/L Chloride 97 L (101-111) mmol/L Carbon Dioxide 24.0 (21.0-31.0) mmol/L Anion Gap 15.0 BUN 19 H (7-18) mg/dL Creatinine 1.3 (0.6-1.3) mg/dL Est Cr Clr Drug Dosing 36.02 mL/min Estimated GFR (MDRD) 52 BUN/Creatinine Ratio 14.61 Glucose 101 (74-105) mg/dL Lactic Acid (0.5-2.0) mmol/L Calcium 9.0 (8.4-10.2) mg/dl Total Bilirubin 1.3 H (0.2-1.0) mg/dL AST 30 (10-42) IU/L ALT 32 (10-60) IU/L Alkaline Phosphatase 45 (42-121) IU/L Troponin I < 0.02 (0.00-0.02) ng/ml B-Natriuretic Peptide 190 H (0-100) pg/ml Total Protein 7.8 (6.7-8.2) g/dl Albumin 3.6 (3.2-5.5) g/dl Globulin 4.2 Albumin/Globulin Ratio 0.86 01/15/20 Range/Units 15:20 WBC (5.0-10.0) 10^3/uL RBC (4.6-6.2) 10^6/uL Hgb (14.0-18.0) g/dL Hct (40.0-54.0) % MCV (80-100) fL MCH (27.0-34.0) pg MCHC (33.0-35.0) g/dL Plt Count (150-450) 10^3/uL Neut % (Auto) (42.2-75.2) % Lymph % (Auto) (20.5-50.1) % [place] % (Auto) (2-8) % Eos % (Auto) (1.0-3.0) % Baso % (Auto) (0.0-1.0) % PT (9.0-12.0) SEC INR (0.9-1.2) Sodium (135-145) mmol/L Potassium (3.6-5.0) mmol/L Chloride (101-111) mmol/L Carbon Dioxide (21.0-31.0) mmol/L Anion Gap BUN (7-18) mg/dL Creatinine (0.6-1.3) mg/dL Est Cr Clr Drug Dosing mL/min Estimated GFR (MDRD) BUN/Creatinine Ratio Glucose (74-105) mg/dL Lactic Acid 1.7 (0.5-2.0) mmol/L Calcium (8.4-10.2) mg/dl Total Bilirubin (0.2-1.0) mg/dL AST (10-42) IU/L ALT (10-60) IU/L Alkaline Phosphatase (42-121) IU/L Troponin I (0.00-0.02) ng/ml B-Natriuretic Peptide (0-100) pg/ml Total Protein (6.7-8.2) g/dl Albumin (3.2-5.5) g/dl Globulin Albumin/Globulin Ratio Meds: Medications Generic Name Dose Route Start Last Admin Trade Name Freq PRN Reason Stop Dose Admin Ceftriaxone Sodium 1 gm/ 50 mls @ 50 mls/hr 08/17/19 16:41 Sodium Chloride IV 08/17/19 17:40 ONETIME ONE Departure - Departure Time of Disposition: 16:47 Disposition: Home, Self-Care 01 Condition: Fair Clinical Impression: Bronchitis - Discharge Information *PRESCRIPTION DRUG MONITORING PROGRAM REVIEWED*: Not Applicable *COPY OF PRESCRIPTION DRUG MONITORING REPORT IN PATIENT ELÍAS: Not Applicable Instructions: Upper Respiratory Infection, Adult, [id number] Forms: ED Department Discharge Care Plan Goals: The patient was advised of the examination and lab results during the visit. The patient was given an IV dose of Rocephin (1 gram) while in the ED. The patient was discharged with a script for Azithromycin (250 mg) #6 to take 2 by mouth on day 1 and 1 by mouth on days 2-5 and Tessalon Pearles (200 mg) #30 to take 1 by mouth 3 times per day. If the patient has any additional symptoms or concerns, the patient should visit his primary care facility or return to the emergency department. Sepsis Event Note - Evaluation Sepsis Screening Result: No Definite Risk - Focused Exam Vital Signs: Vital Signs Temp Pulse Resp BP Pulse Ox 08/17/19 15:16 36.1 C 81 28 H 127/69 98 Date Exam was Performed: 08/17/19 Time Exam was Performed: 16:46 - My Orders Last 24 Hours: My Active Orders 08/17/19 15:00 EKG Documentation Completion [RC] URGENT 08/17/19 15:01 CULTURE BLOOD [BC] Stat 08/17/19 16:41 cefTRIAXone [Rocephin] 1 gm Sodium Chloride 0.9% [Normal Saline] 50 ml IV ONETIME - Assessment/Plan Last 24 Hours: My Active Orders 08/17/19 15:00 EKG Documentation Completion [RC] URGENT 08/17/19 15:01 CULTURE BLOOD [BC] Stat 08/17/19 16:41 cefTRIAXone [Rocephin] 1 gm Sodium Chloride 0.9% [Normal Saline] 50 ml IV ONETIME
[2019-08-17 15:50] LABS: CHLORIDE,CL 97 mmol/L (101-111); SODIUM,NA 132 mmol/L (135-145)
--- NOTE | 2019-08-17 16:32 | CR ---
EXAMINATION: Chest 2V SEX: Male AGE: 89 years CLINICAL HISTORY: 89-year-old male experiencing shortness of breath (SOB) for the past month. INTERPRETATION: 1. Chronic cardiomegaly this patient with new evidence of aortic valve prostheses since 09 July 2016 exam (heart may be larger but less than optimal inspiratory effort). Cardiac pacemaker (single lead intact). External telemetry monitor leads. 2. No new pulmonary vascular congestion, cephalization of flow, alveolar edema or dependent pleural fluid accumulation. 3. Chronic hypertrophic arthritic changes dorsal spine. 4. No new lung mass or hilar lymphadenopathy. 5. No focal lobar infiltrate, atelectasis or collapse. 6. No pneumothorax or pneumomediastinum. No free subdiaphragmatic air. CONCLUSION: No acute new cardiopulmonary abnormality identified in the interval since comparison film 09 July 2016.
[2019-08-17] MEDS ORDERED: cefTRIAXone 1 GM in Sodium Chloride 0.9% 50 ML IV ONE (16:41)
== END 2019-08-17 17:50 | disposition home or self-care (01) ==
LOC: DL.ED 14:58
DX: J40 Bronchitis, not specified as acute or chronic (principal); Z88.8 Allergy status to other drugs, medicaments and biological substances
CPT/HCPCS: 36415; 71046; 80053; 83605; 83880; 84484; 85025; 85610; 87040; 87077; 87186; 93005; 96365; 99284; J0696; J7050